=== PATIENT | female | born 1945 | race Caucasian/White ===

== ENCOUNTER 2016-10-08 14:34 | Emergency (ER) | payer MEDICARE, OTHER ==
[~2016-10-08] VITALS: Ht 152.4 cm; Wt 85.0 kg
[~2016-10-08 14:34] MED LIST: CITA20 PO; DOCU1CAP39 PO; PERC5TAB12 PO; ZOFR4TAB3 PO
[2016-10-08 14:57] VITALS: BP 139/95; PULSE 77; RESP 16; TEMP 97.8; O2SAT 96
[2016-10-08] MEDS ORDERED: OMEP40CA2 PO (15:21)
[2016-10-08] MEDS ORDERED: CITA20TA4 PO (15:21)
[2016-10-08] MEDS ORDERED: LISI10TA3 PO (15:21)
--- NOTE | 2016-10-08 15:38 | PD ---
HPI Chief Complaint: Musculoskeletal Complaint Time Seen by Provider: 15:31 Travel History International Travel<30 days: No Contact w/Intl Traveler<30days: No Traveled to known affect area: No History of Present Illness HPI 70-year-old female with a history of hypertension presents to the emergency department for evaluation of pain radiating from her right buttock down to her right thigh and just below her right knee for the past 2 weeks. Denies any traumatic injury to her back, hip or leg. Describes the pain as a sharp shooting pain. Denies any aggravating or alleviating factors. She has tried stretches, chiropractic visits, Flexeril, Aleve and Lortab with minimal improvement lasting only a period of time and then the pain returns. She denies any saddle anesthesia, bowel or bladder incontinence, fever, chills, nausea, vomiting, swelling of the extremities. No other complaints. PFSH Past Medical History Cancer: No Cardiovascular Problems: No Diabetes: No Diminished Hearing: No Endocrine: No Gastrointestinal Disorders: Yes (reflux hiatel hernia) GERD: Yes Genitourinary: No Hepatitis: No Hiatal Hernia: Yes Hypertension: Yes Immune Disorder: No Musculoskeletal: No Neurologic: No Psychiatric: Yes (mild depression) Reproductive: No Respiratory: No Thyroid Disease: No Tetanus Vaccination: Unknown Influenza Vaccination: Yes ?: Not Menopausal: Yes Tubal Ligation: Yes Past Surgical History AICD: No Appendectomy: Yes Gynecologic Surgery: Yes (tubal) Joint Replacement: No Pacemaker: No Other Surgery: Yes (CYST REMOVED FROM PAROTID GLAND) Social History Alcohol Use: Yes ("RARELY") Tobacco Use: Yes (1/2 PPD) Substance Use: No Allergies-Medications (Allergen,Severity, Reaction): Coded Allergies: Cyanocobalamin (Verified Allergy, Severe, REDNESS, 10/08/16) Reported Meds & Prescriptions Reported Meds & Active Scripts Active Lortab (Hydrocodone-Acetaminophen) 5-325 Mg Tab 1-2 Tab PO Q6H PRN Prednisone 20 Mg Tab 20 Mg PO BID 5 Days Reported Citalopram (Citalopram Hydrobromide) 20 Mg Tab 20 Mg PO DAILY Lisinopril 10 Mg Tab 10 Mg PO DAILY Omeprazole 40 Mg Cap 40 Mg PO DAILY Review of Systems Except as stated in HPI: all other systems reviewed are Neg Physical Exam Narrative GENERAL: Well-nourished and well-developed pleasant female patient in no acute distress who is nontoxic appearing. SKIN: Warm and dry. HEAD: Normocephalic and atraumatic. EYES: No injection, drainage, or hyphema noted. PERRLA. EOMI. ENT: No nasal drainage noted. Oropharynx is clear. NECK: Supple and the trachea is midline. CARDIOVASCULAR: Regular rate and rhythm. RESPIRATORY: Breath sounds are equal bilaterally with no accessory muscle use, wheezing, rhonchi, or crackles. GASTROINTESTINAL: Abdomen is soft, non-tender, and nondistended. MUSCULOSKELETAL: Mild tenderness to palpation over left lower back. Right SLR positive. No obvious deformities, swelling, cyanosis, or ecchymosis is present throughout the upper and lower extremities. Patient has full range of motion without any signs of neurovascular compromise. DP pulses are 2+ bilaterally. BACK: Nontender without any obvious deformities, bony point tenderness, or crepitus noted throughout the thoracic and lumbar vertebrae. NEUROLOGICAL: Awake, alert, and oriented. Normal speech and gait. Cranial nerves are grossly intact. Data Data Last Documented VS Vital Signs Date Time Temp Pulse Resp B/P Pulse Ox O2 Delivery O2 Flow Rate FiO2 10/08/16 14:57 97.8 77 16 139/95 96 Orders Spine, Lumbar Comp W/Obliq (10/08/16 15:43) Dexamethasone Inj (Decadron Inj) (10/08/16 15:45) MDM Medical Decision Making Medical Screen Exam Complete: Yes Emergency Medical Condition: Yes Differential Diagnosis Sciatica versus lumbar radiculopathy versus muscle strain versus muscle spasm Narrative Course 70-year-old female presents to the emergency department for evaluation of pain shooting from right buttock down right leg. Patient is afebrile, vital signs are stable. No traumatic injury. No midline bony point tenderness. This is suspicious for sciatica which I told the patient. The patient and her daughter are requesting an MRI be performed. I discussed with them that I don't think it is clinically indicated to have an MRI at this time. I did offer to let them speak with my attending physician Dr. Israel and they accepted. Dr. Israel also evaluated the patient and recommends plain film x-rays of the lumbar spine but no MRI at this time. X-ray of the lumbar spine shows degenerative changes and mild multilevel spondylolisthesis, no acute abnormality. Discussed all findings with the patient. Patient will be prescribed pain medication and prednisone. She is advised to follow up as an outpatient with her PCP. I discussed the case with my attending physician Dr. Israel who is aware of the patients history, physical examination findings, and treatment plan. Diagnosis Primary Impression: Sciatica of right side Referrals: Primary Care Physician Patient Instructions: General Instructions, Sciatica (ED) Additional Instructions: Perform gentle stretches. Apply ice or heat to help alleviate symptoms. Take medications as prescribed with food and a full glass of water. Follow-up with your Primary Care Physician. Return to the ED for any acute worsening of symptoms. Med/Other Pt SpecificInfo: Prescription(s) given Scripts Hydrocodone-Acetaminophen (Lortab)5-325 Mg Tab1-2 Tab PO Q6H PRN (PAIN) #28 TAB Ref 0 Prov:Silvia Han MD 10/08/16 Prednisone 20 Mg Tab20 Mg PO BID 5 Days Ref 0 Prov:Eddie Israel MD 10/08/16 Disposition: 01 DISCHARGE HOME Condition: Stable Honey Sanchez October 08, 2016 15:38
[2016-10-08] MEDS ORDERED: DEXAMETHASONE SOD PHOS 4 MG/ML VIAL IM ONE (15:45)
--- NOTE | 2016-10-08 16:39 | RADHPO ---
EXAM DATE/TIME: 10/08/2016 15:55 [facility] COMPARISON: No previous studies available for comparison. INDICATIONS : Lower back pain for 2 weeks with no known injury MEDICAL HISTORY : None. SURGICAL HISTORY : None. ENCOUNTER: Initial ACUITY: 2 weeks PAIN SCORE: 6/10 LOCATION: Lumbar spine FINDINGS: There is slight retrolisthesis of L2 relative to L3 and slight anterolisthesis of L3 relative to L4. There is mild disc space narrowing at multiple levels. Tiny endplate osteophytes are present, mainly ventral. Significant disc space loss at the lumbosacral junction. The oblique views reveal satisfacto ry alignment of the posterior facets and mild facet arthropathy, most severely in the lower lumbar sp ine. There is no evidence of fracture or destructive change. CONCLUSION: Degenerative changes and mild multilevel spondylolisthesis. No acute bony process. Zaheer Noble MD on October 08, 2016 at 16:33 Board Certified Radiologist. This report was verified electronically.
[2016-10-08] MEDS ORDERED: PRED20 PO ×2 (16:51→16:54)
[2016-10-08] MEDS ORDERED: HYDR-3533 PO ×2 (16:51→16:55)
== END 2016-10-08 17:19 | disposition home or self-care (01) ==
LOC: PHEFT 14:34
DX: M54.31 Sciatica, right side (principal); I10 Essential (primary) hypertension; K21.9 Gastro-esophageal reflux disease without esophagitis; F17.210 Nicotine dependence, cigarettes, uncomplicated
CPT/HCPCS: 72110; 96372; 99283; J1100